=== PATIENT | female | born 1955 | race Caucasian/White ===

== ENCOUNTER 2020-06-11 08:58 | Emergency (ER) | payer MEDICARE, OTHER ==
[2020-06-11 09:38] LABS: BASOPHIL 0.4 % (0-2); EOSINOPHIL 0.8 & (0-7); HCT 40.4 % (37.0-47.0); HGB 13.9 g/dl (12.5-16.0); LYMPHOCYTE 48.1 % (15-48); MCH 30.8 pg (25.0-31.0); MCHC 34.4 g/dL (32.0-36.0); MCV 89.6 fL (78.0-100.0); MONOCYTE 9.1 % (0-12); MPV 12.3 fL (6.0-9.5); NEUTROPHIL 41.6 % (41-80); PLT 174 K/uL (150-400); RBC 4.51 M/uL (4.20-5.40); WBC 7.11 K/uL (4.0-10.5)
[2020-06-11 09:46] LABS: BILIRUBIN - TOTAL 0.5 mg/dL (0.2-1.0); BUN/CREAT RATIO (CALC) 16.8 RATIO; CREATININE 0.95 mg/dL (0.51-0.95); GLOBULIN (CALCULATION) 4.3 g/dL; MAGNESIUM 1.8 mg/dL (1.8-2.4); POTASSIUM 4.3 mmol/L (3.5-5.1); TOTAL PROTEIN 8.3 g/dL (6.4-8.2)
== END 2020-06-11 11:08 | disposition home or self-care (01) ==
LOC: FER 08:58
PROVIDERS: Emergency Medicine
DX: I47.1 Supraventricular tachycardia (principal); Z88.2 Allergy status to sulfonamides; Z79.899 Other long term (current) drug therapy
CPT/HCPCS: 36415; 80053; 83735; 83880; 84439; 84443; 84484; 85025; 93005; J0153; J7030

== ENCOUNTER 2020-07-29 17:56 | Emergency (ER) | payer MEDICARE, OTHER ==
[2020-07-29 18:47] LABS: BASOPHIL 0.4 % (0-2); EOSINOPHIL 3.6 % (0-7); HCT 38.3 % (37.0-47.0); HGB 12.7 g/dl (12.5-16.0); LYMPHOCYTE 30.4 % (15-48); MCH 30.4 pg (25.0-31.0); MCHC 33.2 g/dL (32.0-36.0); MCV 91.6 fL (78.0-100.0); MONOCYTE 9.2 % (0-12); MPV 12.5 fL (6.0-9.5); NEUTROPHIL 56.1 % (41-80); NRBC 0; PLT 174 K/uL (150-400); RBC 4.18 M/uL (4.20-5.40); RDW 12.5 % (11.5-14.0); WBC 7.5 K/uL (4.0-10.5)
[2020-07-29 18:53] LABS: INR 1.04 (0.9-1.2); PROTHROMBIN TIME 12.9 SECONDS (11.4-13.6); PTT 29.5 SECONDS (22.2-34.7)
[2020-07-29 19:07] LABS: ALBUMIN 3.5 g/dL (3.4-5.0); BILIRUBIN - TOTAL 0.4 mg/dL (0.2-1.0); BUN/CREAT RATIO (CALC) 23.1 RATIO; CREATININE 0.78 mg/dL (0.51-0.95); GLOBULIN (CALCULATION) 3.3 g/dL; POTASSIUM 3.8 mmol/L (3.5-5.1); TOTAL PROTEIN 6.8 g/dL (6.4-8.2)
[2020-07-29 19:33] LABS: BILIRUBIN NEGATIVE (NEGATIVE); BLOOD NEGATIVE Ery/uL (NEGATIVE); CLARITY CLEAR (CLEAR); COLOR YELLOW (YELLOW); GLUCOSE (U) NORMAL (NORMAL); LEUKOCYTES NEGATIVE Leu/uL (NEGATIVE); NITRITE NEGATIVE (NEGATIVE); PROTEIN NEGATIVE (NEGATIVE); SPECIFIC GRAVITY 1.015 (1.001-1.030); UROBILINOGEN 0.2 mg/dL (0.2-1.0)
== END 2020-07-29 20:34 | disposition home or self-care (01) ==
LOC: FER 17:56
PROVIDERS: Emergency Medicine; Nurse Practitioner Family
DX: I47.1 Supraventricular tachycardia (principal); R00.1 Bradycardia, unspecified; I10 Essential (primary) hypertension; E78.5 Hyperlipidemia, unspecified; Z88.2 Allergy status to sulfonamides
CPT/HCPCS: 36415; 71045; 80053; 81003; 83880; 84439; 84443; 84484; 85025; 85610; 85730; 93005

== ENCOUNTER 2020-09-11 11:58 | Emergency (ER) | payer MEDICARE, OTHER ==
[2020-09-11 13:12] LABS: BASOPHIL 0.4 % (0-2); EOSINOPHIL 0.7 % (0-7); HCT 40.1 % (37.0-47.0); HGB 13.5 g/dl (12.5-16.0); LYMPHOCYTE 19.2 % (15-48); MCH 30.8 pg (25.0-31.0); MCHC 33.7 g/dL (32.0-36.0); MCV 91.6 fL (78.0-100.0); MONOCYTE 6.9 % (0-12); MPV 13.3 fL (6.0-9.5); NEUTROPHIL 72.5 % (41-80); NRBC 0; PLT 182 K/uL (150-400); RBC 4.38 M/uL (4.20-5.40); RDW 12.2 % (11.5-14.0); WBC 10.8 K/uL (4.0-10.5)
[2020-09-11 13:14] LABS: INR 1.06 (0.9-1.2); PROTHROMBIN TIME 13.1 SECONDS (11.4-13.6); PTT 33.1 SECONDS (22.2-34.7)
[2020-09-11 13:19] LABS: CREATININE 1.23 mg/dL (0.51-0.95); POTASSIUM 4.1 mmol/L (3.5-5.1)
== END 2020-09-11 14:57 | disposition home or self-care (01) ==
LOC: FER 11:58
PROVIDERS: Emergency Medicine
DX: I47.1 Supraventricular tachycardia (principal); R07.89 Other chest pain; I10 Essential (primary) hypertension; Z86.79 Personal history of other diseases of the circulatory system; Z88.2 Allergy status to sulfonamides; Z79.899 Other long term (current) drug therapy
CPT/HCPCS: 36415; 71046; 80048; 84443; 84484; 85025; 85610; 85730; 93005; J0153

== ENCOUNTER 2020-12-27 22:12 | Emergency (ER) | payer MEDICARE, OTHER ==
[2020-12-27 22:51] LABS: BASOPHIL 0.6 % (0-2); EOSINOPHIL 4.8 % (0-7); HCT 39.3 % (37.0-47.0); HGB 13.2 g/dl (12.5-16.0); LYMPHOCYTE 38.4 % (15-48); MCH 30.3 pg (25.0-31.0); MCHC 33.6 g/dL (32.0-36.0); MCV 90.3 fL (78.0-100.0); MONOCYTE 7.5 % (0-12); MPV 12.2 fL (6.0-9.5); NEUTROPHIL 48.4 % (41-80); NRBC 0; PLT 184 K/uL (150-400); RBC 4.35 M/uL (4.20-5.40); WBC 9.4 K/uL (4.0-10.5)
[2020-12-27 23:20] LABS: ALBUMIN 3.7 g/dL (3.4-5.0); BILIRUBIN - TOTAL 0.2 mg/dL (0.2-1.0); CREATININE 0.8 mg/dL (0.51-0.95); GLOBULIN (CALCULATION) 3.5 g/dL; POTASSIUM 4.2 mmol/L (3.5-5.1); TOTAL PROTEIN 7.2 g/dL (6.4-8.2)
== END 2020-12-28 00:15 | disposition home or self-care (01) ==
LOC: FER 22:12
PROVIDERS: Emergency Medicine Emergency Medical Services
DX: I47.1 Supraventricular tachycardia (principal); E78.5 Hyperlipidemia, unspecified; E07.9 Disorder of thyroid, unspecified; Z88.2 Allergy status to sulfonamides; Z79.899 Other long term (current) drug therapy
CPT/HCPCS: 36415; 71045; 80053; 84443; 84484; 85025; 93005; J7030

== ENCOUNTER 2021-10-30 12:24 | Emergency (ER) | payer MEDICARE, OTHER ==
[2021-10-30 12:56] LABS: BASOPHIL 0.8 % (0-2); EOSINOPHIL 4.8 % (0-7); HCT 41.8 % (37.0-47.0); HGB 13.9 g/dl (12.5-16.0); LYMPHOCYTE 42.3 % (15-48); MCH 30.3 pg (25.0-31.0); MCHC 33.3 g/dL (32.0-36.0); MCV 91.3 fL (78.0-100.0); MONOCYTE 7.5 % (0-12); NEUTROPHIL 44.5 % (41-80); NRBC 0; PLT 186 K/uL (150-400); RBC 4.58 M/uL (4.20-5.40); RDW 12.4 % (11.5-14.0); WBC 7.7 K/uL (4.0-10.5)
[2021-10-30 13:39] LABS: ALBUMIN 3.7 g/dL (3.4-5.0); BILIRUBIN - TOTAL 0.5 mg/dL (0.2-1.0); BUN/CREAT RATIO (CALC) 14.3 RATIO; CREATININE 0.91 mg/dL (0.51-0.95); GLOBULIN (CALCULATION) 3.1 g/dL; POTASSIUM 3.7 mmol/L (3.5-5.1); TOTAL PROTEIN 6.8 g/dL (6.4-8.2)
[2021-10-30 13:45] LABS: MAGNESIUM 1.9 mg/dL (1.8-2.4)
== END 2021-10-30 14:15 | disposition home or self-care (01) ==
LOC: FER 12:24
PROVIDERS: Emergency Medicine
DX: I47.1 Supraventricular tachycardia (principal); I10 Essential (primary) hypertension; E03.9 Hypothyroidism, unspecified; Z88.2 Allergy status to sulfonamides; Z79.890 Hormone replacement therapy; Z79.899 Other long term (current) drug therapy
CPT/HCPCS: 36415; 80053; 83735; 84443; 84484; 85025; 85379; 93005; J0153; J7030